=== PATIENT | male | born 1935 | race Caucasian/White ===

== ENCOUNTER → 2016-08-28 10:04 | Outpatient (CLI) | payer MEDICARE | END | disposition home or self-care (01) | LOC: D.RAD 10:04 | DX: M54.6 Pain in thoracic spine (principal) ==

== ENCOUNTER → 2016-08-31 08:33 | Outpatient (CLI) | payer MEDICARE | END | disposition home or self-care (01) | LOC: D.MRI 08:30 | DX: S22.009A Unspecified fracture of unspecified thoracic vertebra, initial encounter for closed fracture (principal) ==

== ENCOUNTER 2017-02-28 05:33 | Day surgery (SDC) | payer MEDICARE ==
[2017-02-27 11:01] LABS: BASOPHILS 0.1 % (0-2); EOSINOPHILS 2.1 % (0-7); HEMATOCRIT 44.7 % (42.0-54.0); HEMOGLOBIN 15.3 g/dL (13.5-17.5); IMMATURE GRANULOCYTES 0.3 % (0-5); LYMPHOCYTES 23.3 % (15-50); MCH 32.8 pg (26.0-34.0); MCHC 34.2 g/dL (31.0-37.0); MCV 95.9 fL (80.0-100.0); MEAN PLATELET VOLUME 9.7 fL (7.4-10.4); MONOCYTES 6.3 % (2-11); NEUTROPHILS 67.9 % (40-80); PLATELET COUNT 212 10x3/uL (130-400); RBC 4.66 10x6/uL (4.20-6.10); RDW 13.4 % (11.5-14.5); WBC 10.2 10x3/uL (4.8-10.8)
[2017-02-27 11:28] LABS: ANION GAP 7.5 mmol/L (8-16); CALCIUM 9.7 mg/dL (8.5-10.1); CARBON DIOXIDE 30.4 mmol/L (21.0-32.0); CREATININE - SERUM 1.2 mg/dL (0.6-1.3); POTASSIUM - SERUM 4.9 mmol/L (3.5-5.1)
[~2017-02-28] VITALS: Ht 182.9 cm; Wt 96.2 kg
[2017-02-28] MEDS ORDERED: COREG 3.1253.125 MG PO (06:41)
[2017-02-28] MEDS ORDERED: ZOCOR40 MG PO (06:41)
[2017-02-28] MEDS ORDERED: FUROSEMIDE40 MG PO (06:42)
[2017-02-28] MEDS ORDERED: LISINOPRIL10 MG PO (06:42)
[2017-02-28] MEDS ORDERED: ZYLOPRIM300 MG PO (06:43)
[2017-02-28 06:56] VITALS: BP 110/73; Ht 182.9 cm; Wt 96.2 kg
--- NOTE | 2017-02-28 10:16 | OP ---
PATIENT NAME: CK RODRIGUEZ MEDICAL RECORD: [id number] :34 LOCATION:D.OPS ADMISSION DATE: SURGEON: RAY VALENZUELA MD DATE OF OPERATION: 02/28/2017 SURGEON: Ray Valenzuela MD ANESTHESIA: MAC by Dr. Ray Allen. 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 PROCEDURE: Cystoscopy. FINDINGS: No urethral stricture. Nonobstructive prostatic lateral lobes. Tight bladder neck. Single ureteral orifices bilaterally. No bladder tumors. BLOOD LOSS: None. CLINICAL HISTORY: This is an 81-year-old male, who is complaining of a slow urinary stream. He has a history of a urethral stricture, which he had dilated in [place]. Thus, we are performing the procedure today to see if he has recurrence of urethral stricture. 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 He is allergic to PENICILLIN AND KIWI FRUIT. 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 DESCRIPTION OF PROCEDURE: The patient was given IV sedation. He was placed in the dorsal lithotomy position and prepped and draped. Lidocaine jelly was placed into the urethra. A 21-Cymro cystoscope with 30-degree lens was used for visualization. The penile urethra shows no evidence of a stricture. Prostatic urethra shows nonobstructive lateral lobes. However, the bladder neck was extremely tight. An anterior deflection of the scope was required in order to get through the bladder neck. Going into the bladder, there were single ureteral orifices on each side. The bladder was mildly trabeculated. No bladder tumors were seen. The bladder was then emptied through the scope sheath and the scope was removed. I will get the patient started on Flomax and see him back in 2-3 weeks' time to see if there is any change in his voiding symptoms. TRANSINT:[id number] Voice Confirmation ID: [id number] DOCUMENT ID: [id number] RAY VALENZUELA MD at 1016 CC: [id number] DICTATION DATE: 02/28/17929 CRACKER OFF: 02/28/17939 [facility] [address] [place] [address]
== END 2017-02-28 10:55 | disposition home or self-care (01) ==
LOC: D.OPS 05:33 → D.PAN 08:15 → D.OPS 08:15 → D.PAN 08:30 → D.OPS 10:55
PROVIDERS: Anesthesiology
DX: N32.0 Bladder-neck obstruction (principal); I11.0 Hypertensive heart disease with heart failure; I50.9 Heart failure, unspecified; K21.9 Gastro-esophageal reflux disease without esophagitis; Z01.812 Encounter for preprocedural laboratory examination

== ENCOUNTER 2017-06-20 10:33 | Outpatient (CLI) | payer MEDICARE ==
[~2017-06-20] VITALS: Ht 185.4 cm; Wt 95.5 kg
--- NOTE | ~2017-06-20 | HEMODYNAMI ---
PATIENT:CK RODRIGUEZ MEDICAL RECORD: [id number] : 34 LOCATION:D.CAT ADMISSION DATE: 06/20/17 Generatedon:06/20/201713:39 Patient name: CK RODRIGUEZ Patient #: [id number] SSN: : 1935 Date of study: 06/20/2017 Page: Of Hemodynamic Procedure Report Patient Data Patient Demographics Procedure consent was obtained First Name: CK Gender: Male Last Name: JENNIFER : 1935 [facility] Initial: E Age: 81 year(s) Patient #: [id number] Race: Unknown Additional ID: [id number] Contact details Address: [address] [place] [address] State: [place] City: [place] Zip code: [address] Past Medical History Allergies Allergen Reaction Date Comments Reported Other allergy 06/20/2017 PCN Admission Admission Data Admission Date: 06/20/2017 Admission Time: 10:33 Weight (lbs.): 212 Weight (kg.): 96.16 Procedure Procedure Types Cath Procedure Diagnostic Procedure Cardioversion External TARUN Procedure Description Procedure Date Procedure Date: 06/20/2017 Procedure Start Time: 13:02 Procedure Staff Name Function Isael Chacon MD Performing Physician Sahara Jimenez RT Monitor Vinayak Rain RN Nurse Carmelo Stallings Grubber Annita Mitchell CRNA Additional personnel Procedure Data Procedure Complications No complications Procedure Medications Medication Administration Route Dosage Oxygen NC 6 l/min 0.9% NaCl I.V. 100 ml/hr Refer to Anesthesia Notes for Sedation Medications Hemodynamics Rest Heart Rate: 81 (bpm) Snapshots Pre Cath Intra NCS Post Cath Vital Signs Time Heart Resp SPO2 etCO2 NIBP Rhythm Pain Sedation Rate (ipm) (%) (mmHg) (mmHg) Status Level (bpm) 13:14:07 80 15 86 0 110/71(85) NSR 0 (11) 10(A) , No pain 13:18:41 78 16 17.3 102/74(83) NSR 0 (11) 10(A) , No pain 13:23:16 92 16 100 0 107/76(94) NSR 0 (11) 10(A) , No pain 13:27:50 73 17 100 27.8 97/57(69) NSR 0 (11) 9(A) , No pain 13:32:31 63 21 100 30.1 89/44(60) NSR 0 (11) 9(A) , No pain 13:37:01 56 15 100 27.8 95/82(87) NSR 0 (11) 9(A) , No pain Medications Time Medication Route Dose Verified Delivered Reason Notes Effectiven ess by by 13:17:14 Oxygen NC 6 Isael Licea Per l/min St Rosalino Rain RN physician 13:17:33 0.9% NaCl I.V. 100 Isael Licea Per ml/hr St Rosalino Rain RN physician 13:17:39 Refer to Isael Licea Anesthesia St Rosalino Rain RN Notes for MD Sedation Medications Procedure Log Time Note 13:00:58 Vinayak Rain RN sent for patient. Start room use. 13:03:56 Time tracking: Regular hours 13:04:02 Plan of Care:Hemodynamics will remain stable., Cardiac rhythm will remain stable., Comfort level will be maintained., Respiratory function will remain adequate., Patient/ family verbilizes understanding of procedure., Procedure tolerated without complication., Recovers from procedure without complications.. 13:05:29 H&P Date Dictated: 06/06/2017 Within 30 days and on chart., H&P Addendum completed by physician on day of procedure. (MUST COMPLETE FOR ALL OUTPATIENTS). 13:05:48 Patient allergic to Other allergyPCN 13:06:06 Patient arrived from Pre/Post Procedure Room to CCL 1. Patient remains on bed/stretcher for procedure. 13:06:07 Warm blankets applied, and clint hugger turned on for patient comfort. 13:06:08 Correct patient and procedure confirmed by team. 13:06:10 Signed procedure consent form obtained from patient. 13:06:11 ECG and BP/O2 sat monitors applied to patient. 13:13:18 Vital chart was started 13:13:24 Rhythm: atrial fibrillation 13:13:40 Annita Mitchell CRNA present and monitoring patient for TIVA. 13:13:43 Carmelo Stallings Management Professionals present for TARUN. 13:13:52 --------ALL STOP TIME OUT------ 13:13:53 Final Timeout: patient, procedure, and site verified with staff and physician. All members of the team are in agreement. 13:13:58 Physical assessment completed. ASA score P 2 - A patient with mild systemic disease as per Isael Chacon MD. 13:14:02 Sedation plan: TIVA Medication:Propofol 13:14:05 Carmelo Stallings present and monitoring patient for TIVA. 13:14:24 Baseline sample Acquired. 13:14:56 Pre-procedure instructions explained to patient. 13:14:56 Pre-op teaching completed and patient verbalized understanding. 13:14:58 Family in patients room. 13:14:59 Patient NPO since Midnight. 13:15:04 Is patient on blood thinner?No 13:15:16 Patient diabetic? No. 13:15:19 Previous problem with sedation/anesthesia? No ? 13:15:20 Snore? Yes 13:15:24 Sleep apnea? No 13:15:26 Deviated septum? No 13:15:27 Opens mouth fully? Yes 13:15:31 Sticks out tongue? Yes 13:15:33 Airway obstruction? No ? 13:15:38 Dentures? Yes IN TIGHT 13:15:45 IV patent on arrival in right hand with 0.9% NaCl at KVO. 13:16:53 TARUN started. 13:17:14 Oxygen 6 l/min NC was administered by Vinayak Rain RN; Per physician; 13:17:22 Quick Combo opened to sterile field. 13:17:33 0.9% NaCl 100 ml/hr I.V. was administered by Vinayak Rain RN; Per physician; 13:17:39 Refer to Anesthesia Notes for Sedation Medications was administered by Vinayak Rain RN; ; 13:18:04 Patient Weight : 212 lbs 13:25:26 TARUN completed. 13:25:28 Quick combo pads placed on patients chest and back. 13:25:34 Defibrillator synced and charged to 275 Joules. 13:25:47 Shock delivered. 13:27:41 Patient cardioverted to sinus rhythm . 13:27:47 Procedure ended.(Physican Out) 13:28:06 Post-procedure physical assessment completed. ASA score P 2 - A patient with mild systemic disease as per Isael Chacon MD. 13:28:09 Post procedure rhythm: sinus bradycardia 13:28:12 Post procedure instruction explained to patient.Patient verbalizes understanding. 13:28:12 Patient needs reinforcement of post procedure teaching. 13:30:48 Procedure and supply charges have been captured, reviewed, submitted and are correct. 13:30:51 Procedure Complication : No complications 13:38:26 Vital chart was stopped 13:38:27 See physician's report for complete and final results. 13:38:28 Report given to Pre/Post Procedure Room. 13:38:32 Patient transfered to Pre/Post Procedure Room with Bed. 13:38:36 End room use (Document Last) Device Usage Item Manufacture Quantity Catalog Hospital Part Current Minimal Lot# / Name Number Charge Number Stock Stock Raj in# Code CoNarrative 1 [id number] Combo Signature Audit [place] Stage Time Signature Unsigned Intra-Procedure 06/20/2017 Sahara Jimenez 1:39:03 PM RT(R) Signatures Monitor : Sahara Jimenez Signature : RT Date : Time : [address] [address]
--- NOTE | ~2017-06-20 | TEE ---
PATIENT:CK RODRIGUEZ MEDICAL RECORD: [id number] LOCATION:D.[facility] AGE OF PATIENT: 81 ADMISSION DATE: 06/20/17 SEX: M REFERRING PHYSICIAN: INTERPRETING PHYSICIAN: MIRI HILL MD TRANSESOPHAGEAL ECHOCARDIOGRAM TARUN CHARGE Y INDICATIONS: AFIB ASSESS FOR CLOTS PREMEDICATIONS: PATIENT'S RESPONSE PROCEDURE DOPPLER MEASUREMENTS: LVIT LA PA RA LVOT RVOT Asc. Ao AV Gradient Peak AV Mean AV Area MV Gradient Peak MV Mean MV Area INTERPRETATION: Doppler: 2-D: NO CLOTS, 4 CHAMBER DIALATED. COLOR FLOW DOPPLER NORMAL SALINE STUDY: MISCELLANOUS: DIAGNOSIS: PLAN: Supervisor/Port Director:3 Dr. Macias Planishing Hammer Operator: Remington NASH COMMENTS: DATE OF SERVICE: 06/20/2017 PROCEDURE: Transesophageal echo evaluation for left atrial clot due to atrial fibrillation. FINDINGS: 1. Left ventricular chamber size is within normal limits. Left ventricular systolic function is normal. Overall ejection fraction estimated at 60%. 2. Left atrium, right atrium, and right ventricle chamber sizes are upper TRANSESOPHAGEAL ECHOCARDIOGRAM REPORT [id number] CK RODRIGUEZ limits of normal. 3. Valvular structures have normal structure and motion. 4. Doppler interrogation reveals no significant valvular insufficiency or stenosis. 5. No evidence of pericardial effusion or left ventricular thrombus. 6. No left atrial or left ventricular thrombus burden noted. TRANSINT:[id number] Voice Confirmation ID: [id number] DOCUMENT ID: [id number] at 1202 CC: [id number] DICTATION DATE: 06/21/17 1206 YARN DYER: 06/21/17 1227 DEP CLI 06/20/17 [place] [address]
--- NOTE | ~2017-06-20 | OP ---
PATIENT NAME: MICHELE ROSENBERG MEDICAL RECORD: [id number] :34 LOCATION:D.CAT ADMISSION DATE: SURGEON: DEVAN RUEDA MD DATE OF OPERATION: 06/20/2017 TRANSESOPHAGEAL NOTE AND CARDIOVERSION NOTE PROCEDURE: After general anesthesia via TIVA anesthesia, transesophageal Omniplane probe was placed down the distal esophagus and proximal stomach without difficulty. FINDINGS: Grossly LV internal dimensions are normal. LV appears to be little hypokinetic, reduced EF. Estimated EF 40%. Aortic valve is sclerotic; however, adequate valve excursion. No significant AI. Left atrium does appear to be enlarged by 2D. Left atrial appendage is well visualized without evidence of thrombus. Right-sided chambers appeared to be at least upper limits of normal. Mild plus to moderate TR. No evidence of ASD or VSD. Next, a single synchronized shock at 275 joules is successful in restoring atrial fibrillation to normal sinus rhythm without PACs or PVCs. IMPRESSION: Successful cardioversion and transesophageal on Michele Rosenberg. We will reiterate the importance of compliance, although long-term, not sure that he will continue to be compliant. TRANSINT:[id number] Voice Confirmation ID: [id number] DOCUMENT ID: [id number] DEVAN RUEDA MD at 1231 CC: [id number] DICTATION DATE: 06/20/17 1336 SUPERVISORY LIFEGUARD: 06/20/17 1623 DEP CLI 06/20/17 [place] [id number] [place] [id number]
[~2017-06-20 10:33] MED LIST: COREG 3.1253.125 MG PO; FUROSEMIDE40 MG PO; LISINOPRIL10 MG PO; ZOCOR40 MG PO; ZYLOPRIM300 MG PO
[2017-06-20] MEDS ORDERED: FLOMAX0.4 MG PO (11:08)
[2017-06-20 11:28] VITALS: BP 127/84; Ht 185.4 cm; Wt 95.5 kg
[2017-06-20 11:39] LABS: BASOPHILS 0.1 % (0-2); EOSINOPHILS 2.4 % (0-7); HEMATOCRIT 45.1 % (42.0-54.0); HEMOGLOBIN 15.4 g/dL (13.5-17.5); IMMATURE GRANULOCYTES 0.3 % (0-5); LYMPHOCYTES 21.5 % (15-50); MCH 32.3 pg (26.0-34.0); MCHC 34.1 g/dL (31.0-37.0); MCV 94.5 fL (80.0-100.0); MEAN PLATELET VOLUME 9.8 fL (7.4-10.4); MONOCYTES 6.6 % (2-11); NEUTROPHILS 69.1 % (40-80); PLATELET COUNT 176 10x3/uL (130-400); RBC 4.77 10x6/uL (4.20-6.10); RDW 13.4 % (11.5-14.5)
[2017-06-20 11:49] LABS: ANION GAP 14.5 mmol/L (8-16); CALCIUM 9.9 mg/dL (8.5-10.1); CARBON DIOXIDE 26.9 mmol/L (21.0-32.0); CREATININE - SERUM 1.3 mg/dL (0.6-1.3); POTASSIUM - SERUM 4.4 mmol/L (3.5-5.1)
[2017-06-20 11:52] LABS: INR 1.02 (0.85-1.17)
== END 2017-06-20 14:58 | disposition home or self-care (01) ==
LOC: D.CATH 10:33
PROVIDERS: Internal Medicine Cardiovascular Disease
DX: I70.0 Atherosclerosis of aorta (principal); I07.1 Rheumatic tricuspid insufficiency; I48.91 Unspecified atrial fibrillation; Z01.812 Encounter for preprocedural laboratory examination

== ENCOUNTER 2017-07-09 15:30 | Observation (INO) | payer MEDICARE ==
[~2017-07-09] VITALS: Ht 185.4 cm; Wt 95.3 kg
--- NOTE | ~2017-07-09 | DS ---
PATIENT:CK ROSENBERG :33 MEDICAL RECORD: [id number] DISCHARGE SUMMARY ADMISSION DATE: 07/09/17 DISCHARGE DATE: 07/11/17 DATE OF DISCHARGE: 07/11/2017. DIAGNOSES: 1. Bradycardia. 2. Paroxysmal atrial fibrillation. 3. Sick sinus syndrome. HOSPITAL COURSE: Mr. Rosenberg presented with atrial fibrillation, last week underwent transesophageal echo DC cardioversion, came back this week. He was quite bradycardic. He is on sotalol 80 mg b.i.d. as well as carvedilol and we held both, his heart rate came up to the 70s. He remained in sinus rhythm. We will discontinue the carvedilol permanently, have the sotalol to 40 mg b.i.d. We will follow up next week. TRANSINT:[id number] Voice Confirmation ID: [id number] DOCUMENT ID: [id number] MIRI HILL MD at 1056 CC: [id number] DICTATION DATE: 07/11/17 1218 COMMUNICATIONS ENGINEERING TECHNICIAN: 07/11/17 1228 DIS IN 07/11/17 [place] [id number] [place] [id number]
[~2017-07-09 15:30] MED LIST changes: +FLOMAX0.4 MG PO
[2017-07-09 16:08] LABS: BASOPHILS 0.1 % (0-2); EOSINOPHILS 3.1 % (0-7); HEMATOCRIT 39.3 % (42.0-54.0); HEMOGLOBIN 13.5 g/dL (13.5-17.5); IMMATURE GRANULOCYTES 0.1 % (0-5); LYMPHOCYTES 26.2 % (15-50); MCH 32.5 pg (26.0-34.0); MCHC 34.4 g/dL (31.0-37.0); MCV 94.7 fL (80.0-100.0); MEAN PLATELET VOLUME 9.3 fL (7.4-10.4); MONOCYTES 7.7 % (2-11); NEUTROPHILS 62.8 % (40-80); PLATELET COUNT 158 10x3/uL (130-400); RBC 4.15 10x6/uL (4.20-6.10); RDW 13.4 % (11.5-14.5)
[2017-07-09 16:32] LABS: ALBUMIN 3.6 g/dL (3.4-5.0); ALKALINE PHOSPHATASE 63 U/L (46-116); ALT (SGPT) 15 U/L (10-68); BILIRUBIN - TOTAL 0.62 mg/dL (0.2-1.3); CALC OSMOLALITY 284 mosm/kg (275-300); CALCIUM 8.7 mg/dL (8.5-10.1); CARBON DIOXIDE 26.3 mmol/L (21.0-32.0); CHLORIDE - SERUM 105 mmol/L (98-107); CREATININE - SERUM 1.3 mg/dL (0.6-1.3); GLUCOSE 125 mg/dL (74-106); POTASSIUM - SERUM 4.4 mmol/L (3.5-5.1); PROTEIN - SERUM 6.5 g/dL (6.4-8.2); SODIUM 140 mmol/L (136-145); UREA NITROGEN 26 mg/dL (7-18); eGFR NON AFRICAN AMERICAN 56 mL/min (90-120)
[2017-07-09 16:42] LABS: CKMB 1.5 U/L (0.0-3.6); CREATINE KINASE 142 UL (21-232)
[2017-07-09 16:58] LABS: TROPONIN-I < 0.017 ng/mL (0.000-0.060)
[2017-07-09 17:16] LABS: APPEARANCE CLEAR (CLEAR); BILIRUBIN NEGATIVE (NEGATIVE); COLOR YELLOW (YELLOW); GLUCOSE NEGATIVE (NEGATIVE); KETONE NEGATIVE (NEGATIVE); NITRITE NEGATIVE (NEGATIVE); PROTEIN NEGATIVE (NEGATIVE); UROBILINOGEN NORMAL (NORMAL)
[2017-07-09 20:26] LABS: CKMB 1.3 U/L (0.0-3.6); CREATINE KINASE 140 UL (21-232); TROPONIN-I < 0.017 ng/mL (0.000-0.060)
[2017-07-10 01:26] VITALS: BP 96/62
[2017-07-10 02:19] LABS: CKMB 1.6 U/L (0.0-3.6); CREATINE KINASE 185 UL (21-232); TROPONIN-I < 0.017 ng/mL (0.000-0.060)
[2017-07-10 06:34] VITALS: BP 106/70
[2017-07-10 06:36] VITALS: BP 96/62; BMI 27.6
[2017-07-10 09:24] LABS: BASOPHILS 0.1 % (0-2); EOSINOPHILS 2.8 % (0-7); HEMATOCRIT 41.1 % (42.0-54.0); IMMATURE GRANULOCYTES 0.3 % (0-5); LYMPHOCYTES 22.6 % (15-50); MCH 32.3 pg (26.0-34.0); MCHC 34.1 g/dL (31.0-37.0); MCV 94.7 fL (80.0-100.0); MEAN PLATELET VOLUME 9.9 fL (7.4-10.4); MONOCYTES 7.2 % (2-11); PLATELET COUNT 163 10x3/uL (130-400); RBC 4.34 10x6/uL (4.20-6.10); RDW 13.3 % (11.5-14.5); WBC 7.8 10x3/uL (4.8-10.8)
[2017-07-10 09:57] LABS: CALC OSMOLALITY 284 mosm/kg (275-300); CARBON DIOXIDE 25.5 mmol/L (21.0-32.0); CHLORIDE - SERUM 106 mmol/L (98-107); CKMB 1.5 U/L (0.0-3.6); CREATINE KINASE 118 UL (21-232); CREATININE - SERUM 1.2 mg/dL (0.6-1.3); GLUCOSE 132 mg/dL (74-106); POTASSIUM - SERUM 4.3 mmol/L (3.5-5.1); SODIUM 140 mmol/L (136-145); TROPONIN-I < 0.017 ng/mL (0.000-0.060); UREA NITROGEN 24 mg/dL (7-18); eGFR NON AFRICAN AMERICAN 61 mL/min (90-120)
[2017-07-10 13:24] VITALS: Ht 185.4 cm; Wt 95.3 kg
[2017-07-10 20:00] VITALS: BP 112/53
[2017-07-11 06:42] VITALS: BP 130/68
[2017-07-11 10:25] VITALS: BP 168/60
[2017-07-11] MEDS ORDERED: BETAPACE 80 MG80 MG PO (12:30)
[2017-07-11 13:01] VITALS: BP 124/88
== END 2017-07-11 17:35 | disposition home or self-care (01) ==
LOC: D.ER 15:30 → D.EDHOLD 19:41 → D.M2 19:41 → D.EDHOLD 19:41 → OBSVTIME 19:42 → D.M2 19:50
PROVIDERS: Family Medicine
DX: I49.5 Sick sinus syndrome (principal); I95.9 Hypotension, unspecified; I48.0 Paroxysmal atrial fibrillation

== ENCOUNTER 2017-08-13 11:14 | Outpatient (CLI) | payer MEDICARE ==
[~2017-08-13] VITALS: Ht 185.4 cm; Wt 96.8 kg
--- NOTE | ~2017-08-13 | HEMODYNAMI ---
PATIENT:CK RODRIGUEZ MEDICAL RECORD: [id number] : 34 LOCATION:DSheaCAT ADMISSION DATE: 08/13/17 Generatedon:08/13/201715:42 Patient name: CK RODIRGUEZ Patient #: [id number] SSN: : 1935 Date of study: 08/13/2017 Page: Of Hemodynamic Procedure Report Patient Data Patient Demographics Procedure consent was obtained First Name: CK Gender: Male Last Name: JENNIFER : 1935 [facility] Initial: E Age: 81 year(s) Patient #: [id number] Race: Unknown Additional ID: [id number] Contact details Address: [address] [place] [address] State: [place] City: [place] Zip code: [address] Past Medical History Allergies Allergen Reaction Date Comments Reported Other allergy 06/20/2017 PCN Other allergy 08/13/2017 PCN, KIWI Admission Admission Data Admission Date: 08/13/2017 Admission Time: 11:14 Lab Results Lab Result Date: 08/13/2017 Lab Result Time: 0:00 Biochemistry Name Units Result Min Max BUN mg/dl 23 --(----)-* 7 18 Creatinine mg/dl 1.2 --(---*)-- 0.6 1.3 CBC Name Units Result Min Max Hemoglobin g/dl 13.6 --(*---)-- 13.5 17.5 Procedure Procedure Types Cath Procedure Diagnostic Procedure PPM/ICD PPM Dual Implant Procedure Description Procedure Date Procedure Date: 08/13/2017 Procedure Start Time: 15:09 Procedure End Time: 15:36 Procedure Staff Name Function Isael Chacon MD Performing Physician Laurent Navarro MD Assisting physician Sahara Jimenez RT Monitor Angel Lima RT Scrub Vinayak Rain RN University Controller Adelfo Lange RN Nurse Procedure Data Cath Procedure Fluoroscopy Diagnostic fluoroscopy Total fluoroscopy Time: 1.3 time: 1.3 min min Diagnostic fluoroscopy Total fluoroscopy dose: 36 dose: 36 mGy mGy Estimated blood loss: 10 ml Procedure Complications No complications Procedure Medications Medication Administration Route Dosage Oxygen NC 2 l/min Lidocaine 1% with added to field 20 ml Epi Bupivacaine 0.5% 10 ml Vancomycin I.V.P.B 1 g Vancomycin Topical 1 g Irrigation Versed I.V. 1 mg Fentanyl I.V. 50 mcg Versed I.V. 1 mg Fentanyl I.V. 50 mcg Hemodynamics Rest HGB: 13.6 (g/dl) Heart Rate: 62 (bpm) Snapshots Pre Cath Intra NCS Post Cath Vital Signs Time Heart Resp SPO2 etCO2 NIBP (mmHg) Rhythm Pain Sedation Rate (ipm) (%) (mmHg) Status Level (bpm) 14:45:20 68 15 97 24 153/90(135) SB 0 (11) 10(A) , No pain 14:50:00 67 12 98 24.7 152/69(99) SB 0 (11) 10(A) , No pain 14:54:25 61 16 97 30.8 134/98(122) SB 0 (11) 10(A) , No pain 14:58:49 60 15 98 31.5 137/91(128) SB 0 (11) 10(A) , No pain 15:04:10 62 14 100 32.3 133/73(102) SB 0 (11) 10(A) , No pain 15:08:43 60 14 99 27 121/66(107) SB 0 (11) 9(A) , No pain 15:13:03 89 16 97 2.9 129/79(121) SB 0 (11) 9(A) , No pain 15:17:23 64 19 95 9.7 131/92(116) SB 0 (11) 9(A) , No pain 15:21:47 68 18 99 30.7 141/81(113) SB 0 (11) 9(A) , No pain 15:26:15 29 19 99 22.5 129/74(110) SB 0 (11) 9(A) , No pain 15:30:44 31 50 100 0 126/66(111) SB 0 (11) 10(A) , No pain 15:35:02 91 15 100 31.5 112/80(97) SB 0 (11) 10(A) , No pain Medications Time Medication Route Dose Verified Delivered Reason Notes Effectiv eness by by 14:58:03 Oxygen NC 2 Isael Ianie used for l/min St Rosalino Lange RN procedure 14:58:11 Lidocaine added 20 ml Isael Mancilla for local 1% with Epi to St Rosalino Navarro MD anesthetic field RDZ 14:58:29 Bupivacaine on 10 ml Isael Mancilla for local 0.5% field St Rosalino Navarro MD anesthetic 14:58:50 Vancomycin I.V.P.B 1 g Isael Kirkland used for Ines St Jerry procedure MD RDZ 14:59:00 Vancomycin Topical 1 g Isael Mancilla used for Irrigation St Rosalino Navarro MD procedure 15:05:37 Versed I.V. 1 mg Isael Sosaie for St Rosalino Lange RN sedation 15:05:44 Fentanyl I.V. 50 Isael [address] for mcg [facility] Rosalino Lange RN sedation 15:12:08 Versed I.V. 1 mg Isael Buffie for St Rosalino Lange RN sedation 15:12:12 Fentanyl I.V. 50 Is[address] for mcg [address] Rosalino Lange RN sedation Procedure Log Time Note 14:12:31 Time tracking: Regular hours (M-F 7:00 - 5:00) 14:12:35 Plan of Care:Hemodynamics will remain stable., Cardiac rhythm will remain stable., Comfort level will be maintained., Respiratory function will remain adequate., Patient/ family verbilizes understanding of procedure., Procedure tolerated without complication., Recovers from procedure without complications.. 14:12:40 Sahara Jimenez RT(R) sent for patient. Start room use. 14:20:36 H&P Date Dictated: 08/01/2017 Within 30 days and on chart.. 14:21:18 Signed procedure consent form obtained from patient. 14:22:59 Lab Result : Creatinine 1.2 mg/dl 14:22:59 Lab Result : BUN 23 mg/dl 14:22:59 Lab Result : Hemoglobin 13.6 g/dl 14:27:08 Patient allergic to Other allergyPCN, KIWI 14:34:42 Patient received from Pre/Post Procedure Room to CCL 3 Alert and oriented. Tansferred to table in Supine position. 14:34:43 Correct patient and procedure confirmed by team. 14:34:44 ECG and BP/O2 sat monitors applied to patient. 14:43:54 Vital chart was started 14:43:56 Baseline sample Acquired. 14:44:07 Rhythm: atrial fibrillation 14:44:08 Full Disclosure recording started 14:44:11 Pre-procedure instructions explained to patient. 14:44:11 Pre-op teaching completed and patient verbalized understanding. 14:44:13 Family in patients room. 14:44:18 Patient NPO since Midnight. 14:44:20 Is the patient allergic to Iodine/contrast media? No. 14:44:22 Is patient on blood thinner?No 14:44:24 Patient diabetic? No. 14:44:33 Previous problem with sedation/anesthesia? No ? 14:44:34 Snore? Yes 14:44:35 Sleep apnea? No 14:44:36 Deviated septum? No 14:44:37 Opens mouth fully? Yes 14:44:37 Sticks out tongue? Yes 14:44:40 Airway obstruction? No ? 14:44:44 Dentures? Yes IN TIGHT 14:44:58 IV patent on arrival in left hand with 0.9% NaCl at O. 14:45:04 Lab results completed and on chart. 14:45:16 Left chest area was prepped with chlora-prep and draped in sterile fashion 14:45:18 Alarms reviewed by R. N. 14:45:18 Sharps counted by scrub and verified by R.N. 14:53:51 Medtronic Advisa MRI PPM Dual Generator [id number] opened to sterile field. 14:53:58 Medtronic 4074-52 PPM Lead opened to sterile field. 14:54:07 Medtronic 4574-45 PPM Lead opened to sterile field. 14:58:03 Oxygen 2 l/min NC was administered by Adelfo Lange RN; used for procedure; 14:58:11 Lidocaine 1% with Epi 20 ml added to field was administered by Laurent Navarro MD; for local anesthetic; 14:58:29 Bupivacaine 0.5% 10 ml on field was administered by Laurent Navarro MD; for local anesthetic; 14:58:50 Vancomycin 1 g I.V.P.B was administered by Isael Chacon MD; used for procedure; 14:59:00 Vancomycin Irrigation 1 g Topical was administered by Laurent Navarro MD; used for procedure; 15:00:39 --------ALL STOP TIME OUT------ 15:00:40 Final Timeout: patient, procedure, and site verified with staff and physician. All members of the team are in agreement. 15:00:45 Left chest site verified by team. 15:00:50 Physical assessment completed. ASA score P 2 - A patient with mild systemic disease as per Isael Chacon MD. 15:00:54 Sedation plan: IV Moderate Sedation Medication:Versed, Fentanyl 15:03:28 Pre sharps counted by scrub and verified by RN: Sutures: 7; Sponges: 5; Stick needles: 2; Skin needles: 2; Blade: 1; Cautery: 1 15:03:31 Grounding pad site Left thigh. 15:03:32 Grounding pad site free from injury. 15:04:50 [employer] small business representative DAR HELM present for procedure. 15:05:37 Versed 1 mg I.V. was administered by Adelfo Lange RN; for sedation; 15:05:44 Fentanyl 50 mcg I.V. was administered by Adelfo Lange RN; for sedation; 15:09:21 Procedure started. 15:09:45 Lidocaine 1% w/epi and Bupivacaine 0.5% was administered to left subclavicular area by Laurent Navarro MD . 15:11:05 Incision made to left subclavicular area. 15:12:08 Versed 1 mg I.V. was administered by Adelfo Lange RN; for sedation; 15:12:12 Fentanyl 50 mcg I.V. was administered by Adelfo Lange RN; for sedation; 15:14:13 Generator pocket made/opened. 15:15:15 Left subclavian vein accessed with 7Fr Peel Away Sheath. 15:16:19 Ventricular lead inserted and advanced. 15:17:10 Ventricular lead positioned. 15:17:16 Ventricular lead tested. 15:18:06 Peel-a-way sheath was split and removed. 15:18:26 Left subclavian vein accessed with 7Fr Peel Away Sheath. 15:20:54 Atrial lead inserted and advanced. 15:20:57 Atrial lead positioned. 15:21:02 Atrial lead tested. 15:21:41 Peel-a-way sheath was split and removed. 15:21:54 PPM Dual was attached to lead(s) and inserted into pocket. 15:22:54 PPM Dual was inserted subcutaneously to left chest. 15:22:58 Device pocket was irrigated with Ancef. 15:23:03 Atrial lead attachment was completed with 2-0 ticron. 15:23:08 Ventricular lead attachment was completed with 2-0 ticron. 15:23:45 Subcutaneous closure was completed with 3-0 vicryl. 15:23:52 Skin closure was completed with 5-0 monocryl. 15:25:37 Parameters-- Generator: Mode: AAIR/DDDR. Lower Rate: 60bpm. Upper Rate: 120bpm. 15:27:10 Parameters--Ventricular P/R Wave: 7.1mV. Current: .3mA; Threshold: .5V; Impedence: 1628OHMS. 15:27:33 Parameters--Atrial P/R Wave: 1.7mV. Current: .7mA; Threshold: .5V; Impedence: 789OHMS. 15:30:12 Post sharps counted by scrub and verified by RN: Sutures: 7; Sponges: 5; Stick needles: 2; Skin needles: 2; Blade: 1; Cautery: 1 15:30:22 Lt Chest incision was dressed with Mepilex dressing. 15:34:52 2-0 Ticron Multipack ([id number]) opened to sterile field. 15:34:53 3-0 Vicryl Single Pack [id number] opened to sterile field. 15:34:53 5-0 Monocryl PS3 [id number] opened to sterile field. 15:35:21 Mepilex Dressing ([id number]) opened to sterile field. 15:35:27 Procedure ended.(Physican Out) 15:35:44 Fluoroscopy time 01.30 minutes. 15:35:49 Flurop Dose total: 36 15:35:49 Fluoroscopy dose: 36 mGy 15:35:51 Sharps counted by scrub and verified by R.N. 15:36:09 Post-procedure physical assessment completed. ASA score P 2 - A patient with mild systemic disease as per Isael Chacon MD. 15:36:12 Post procedure rhythm: paced 15:36:15 Estimated blood loss: 10 ml 15:36:23 Post procedure instruction explained to patient.Patient verbalizes understanding. 15:36:24 Patient needs reinforcement of post procedure teaching. 15:36:46 Procedure and supply charges have been captured, reviewed, submitted and are correct. 15:36:49 Procedure Complication : No complications 15:36:51 Vital chart was stopped 15:36:51 See physician's report for complete and final results. 15:36:53 Report given to PCU. 15:36:55 Patient transfered to PCU with Bed. 15:36:57 Procedure ended. 15:36:57 Full Disclosure recording stopped 15:37:00 End room use (Document Last) Device Usage Item Name Manufacture Quantity Catalog Hospital Part Current Minimal Lot# / Number Charge Number Stock Stock Serial# Code Medtronic Medtronic 1 [id number] 5 EXP Advisa MRI 07.10.2018 PPM Dual [id number] Generator [id number] Medtronic Medtronic 1 4074-52 063987 247970 5 EXP 4074-52 PPM 12.24.2018 Lead [id number] Medtronic Medtronic 1 4574-45 961934 810424 5 EXP02.19.2019 4574-45 PPM [id number] Lead 2-0 Ticron Ethicon 1 [id number] 274458 86877 190565 5 Multipack ([id number]) 3-0 Vicryl Ethicon 1 [id number] 195627 014115 991782 5 Single Pack [id number] 5-0 Monocryl Ethicon 1 [id number] 306256 352497 5 PS3 [id number] Mepilex Cardinal 1 728249 217284 130156 723610 5 [facility] (672850) Signature Audit [place] Stage Time Signature Unsigned Intra-Procedure 08/13/2017 Sahara Jimenez 3:42:43 PM RT(R) Signatures Monitor : Sahara Jimenez Signature : RT Date : Time : [place] [address] [place] [address]
--- NOTE | ~2017-08-13 | OP ---
PATIENT NAME: MICHELE ROSENBERG MEDICAL RECORD: [id number] :34 LOCATION:D.CAT ADMISSION DATE: SURGEON: DEVAN RUEDA MD DATE OF OPERATION: 08/13/2017 PROCEDURE: Lead portion of permanent pacemaker placement. INDICATION: Sick sinus syndrome, PAF with tiesha escape rhythm. SURGEON: Laurent Navarro MD DESCRIPTION OF PROCEDURE: After left subclavian was cannulated via modified Seldinger technique by Dr. Navarro, first under fluoroscopic guidance, the RV lead was placed in the RV apex without difficulty. After adequate R waves and thresholds were obtained, again under fluoroscopic guidance, I placed the right atrial lead in the right atrial appendage without difficulty. After adequate thresholds and P waves were obtained, the leads were attached to appropriate poles of the generator and the pocket was closed via Dr. Navarro. IMPRESSION: Successful lead portion of permanent pacemaker placement on Michele Rosenberg. ESTIMATED BLOOD LOSS: Minimal. COMPLICATIONS: None. DISPOSITION: To the floor stable. TRANSINT:[id number] Voice Confirmation ID: [id number] DOCUMENT ID: [id number] DEVAN RUEDA MD at 0804 CC: [id number] DICTATION DATE: 08/13/17 1527 AIRCRAFT METALSMITH: 08/13/17 1619 DEP CLI 08/14/[address] [address]
[~2017-08-13 11:14] MED LIST changes: +BETAPACE 80 MG80 MG PO
[2017-08-13] MEDS ORDERED: COREG 3.1253.125 MG PO (11:57)
[2017-08-13 12:04] VITALS: BP 103/62; Ht 185.4 cm; Wt 96.8 kg
[2017-08-13 12:13] LABS: HEMATOCRIT 39.6 % (42.0-54.0); HEMOGLOBIN 13.6 g/dL (13.5-17.5); MCH 32.7 pg (26.0-34.0); MCHC 34.3 g/dL (31.0-37.0); MCV 95.2 fL (80.0-100.0); MEAN PLATELET VOLUME 10.1 fL (7.4-10.4); RBC 4.16 10x6/uL (4.20-6.10); RDW 13.5 % (11.5-14.5); WBC 8.1 10x3/uL (4.8-10.8)
[2017-08-13 12:27] LABS: INR 1.08 (0.85-1.17); PROTIME 13.6 SECONDS (11.6-15.0)
[2017-08-13 12:28] LABS: APTT 28.7 SECONDS (22.8-39.4)
[2017-08-13 12:36] LABS: ANION GAP 14.7 mmol/L (8-16); CALCIUM 9.3 mg/dL (8.5-10.1); CARBON DIOXIDE 24.6 mmol/L (21.0-32.0); CREATININE - SERUM 1.2 mg/dL (0.6-1.3); POTASSIUM - SERUM 4.3 mmol/L (3.5-5.1)
[2017-08-13 20:00] VITALS: BP 109/57
[2017-08-14] VITALS: BP 113/68
[2017-08-14 04:00] VITALS: BP 100/64
[2017-08-14 09:10] VITALS: BP 114/60
== END 2017-08-14 11:30 | disposition home or self-care (01) ==
LOC: D.CATH 11:14 → D.M2 16:10 → D.CATH 08-14 11:30
PROVIDERS: Internal Medicine Interventional Cardiology
DX: I49.5 Sick sinus syndrome (principal); I48.0 Paroxysmal atrial fibrillation; Z01.812 Encounter for preprocedural laboratory examination

== ENCOUNTER 2018-08-12 05:30 | Day surgery (SDC) | payer MEDICARE ==
[2018-08-11 12:11] LABS: BASOPHILS 0.1 % (0-2); EOSINOPHILS 2.1 % (0-7); HEMATOCRIT 44.8 % (42.0-54.0); HEMOGLOBIN 15.1 g/dL (13.5-17.5); IMMATURE GRANULOCYTES 0.2 % (0-5); LYMPHOCYTES 25.8 % (15-50); MCHC 33.7 g/dL (31.0-37.0); MCV 94.9 fL (80.0-100.0); MEAN PLATELET VOLUME 10.5 fL (7.4-10.4); MONOCYTES 8.3 % (2-11); NEUTROPHILS 63.5 % (40-80); PLATELET COUNT 137 10x3/uL (130-400); RBC 4.72 10x6/uL (4.20-6.10); RDW 13.5 % (11.5-14.5); WBC 9.8 10x3/uL (4.8-10.8)
[2018-08-11 12:12] LABS: ANION GAP 16.7 mmol/L (8-16); CALCIUM 9.3 mg/dL (8.5-10.1); CARBON DIOXIDE 24.2 mmol/L (21.0-32.0); CREATININE - SERUM 1.2 mg/dL (0.6-1.3); POTASSIUM - SERUM 4.9 mmol/L (3.5-5.1)
[~2018-08-12] VITALS: Ht 182.9 cm; Wt 99.3 kg
[~2018-08-12 05:30] MED LIST changes: +ZOCOR20 MG PO
[2018-08-12 06:13] VITALS: BP 110/73; Ht 182.9 cm; Wt 99.3 kg
--- NOTE | 2018-08-12 09:09 | NUR ---
3096 UP TO BATHROOM WITH ASSISTANCE. Melody ROSARIO R.N.
--- NOTE | 2018-08-12 09:49 | OP ---
PATIENT NAME: CK RODRIGUEZ MEDICAL RECORD: [id number] :34 LOCATION:D.OPS ADMISSION DATE: SURGEON: RACHEL VALENZUELA MD DATE OF OPERATION: 08/12/2018 SURGEON: Rachel Valenzuela MD ANESTHESIA: TIVA by XIOMARA Kunz CRNA DIAGNOSIS: Obstructive benign prostatic hypertrophy. PROCEDURE: UroLift times 4, the bladder neck in a box configuration. FINDINGS: Obstructive bladder neck. Single ureteral orifices bilaterally. No bladder tumors. ESTIMATED BLOOD LOSS: Minimal. CLINICAL HISTORY: This is an 82-year-old male, who has obstructive BPH. Cystoscopy shows that the obstruction is primarily at the bladder neck and the lateral lobes are not obstructive. He has been on Flomax since 2017. He does not experience any lightheadedness. He does have some issues with memory loss. Due to the recent reports that Flomax may predispose to dementia, he would like to get off the Flomax. His IPSS score is 12 and his quality of life score is 3 while on Flomax. On JOHN, the prostate is 30 grams in size. THE PATIENT IS ALLERGIC TO PENICILLIN. He was given Levaquin IV economic research analyst to the OR. DESCRIPTION OF PROCEDURE: The patient was given IV sedation. He was then placed into dorsal lithotomy position and prepped and draped. The UroLift scope was introduced. The cystoscopic findings are as outlined above. We started 1.5 cm distal to the bladder neck. At the very anterior corner of the lateral lobe device was placed on each side. Once this device was implanted, then we again started at the bladder neck and placed another 2 devices in the lateral lobe 1.5 cm distal to the bladder neck as a more inferior position. This resulted in a rectangular box opening of the bladder neck. The bladder neck is open now. The procedure was then terminated. The bladder was emptied through the cystoscope sheath. The patient will be seen in followup in 1 months' time. TRANSINT:[id number] Voice Confirmation ID: [id number] DOCUMENT ID: [id number] RACHEL VALENZUELA MD at 0949 CC: [id number] DICTATION DATE: 08/12/18818 PEDIATRICS TEACHER: 08/12/18 0942 REG [facility] [address] [place] [address]
--- NOTE | 2018-08-12 09:50 | NUR ---
0950 IV RATE INCREASED INFUSING WITOUT DIFFICULTY. Melody ROSARIO R.N.
--- NOTE | 2018-08-12 13:59 | NUR ---
1020 USING LBADDER SCANNER SHOWS 273ML URINE IN BLADDER. Melody ROSARIO R.N.
--- NOTE | 2018-08-12 14:00 | NUR ---
1035 USING ASEPTIC TECHNIQUE #16 UZBEK ANG CATHETER INSERTED INTO URINARY MEATUS & ADVANCEDWITH RETURN OF BURGANDY FLUID. BALLOON INFLATED WITH CATHETER IN PLACE. CONTINUES TO DRAIN DARK BURGANDY FLUID. Melody Lam.N. 1050 IV DC'ED WITH CATH INTACT WITH 100ML LTC. PT DRESSING WITH ASSISTANCE. Melody Lam.N. 1110 MRS[address] RODRIGUEZ GIVEN DEMOSTRATION OF HOW TO EMPTY ANG COLLECTION BAG, BAG EMPTIED OF 225ML OF DARK RED FLUID. Melody Lam.NShea 1125 DRESSED, AWAKE, & ALERT. GIVEN DISCHARGE INFORMATION INCLUDING: MED REC., [facility] D/C INSTRUCTIONS, RTC APPT., UROLIFT D/C INSTRUCTIONS, UROLIFT PAMPHLET & UROLIFT ID CARD WELL HOW TO CARE FOR ANG (MALE) PT & VOICE UNDERSTANDING. TO PRIVATE CAR PER WHEELCHAIR BY VOLUNTEER. HOME WITH MRS. RODRIGUEZ. Melody ROSARIO R.N.
== END 2018-08-12 11:25 | disposition hospice, home (50) ==
LOC: D.OPS 05:30 → D.PAN 07:30 → D.OPS 11:25
PROVIDERS: Anesthesiology; ATTEND Urology
DX: N40.1 Benign prostatic hyperplasia with lower urinary tract symptoms (principal); N13.8 Other obstructive and reflux uropathy; R41.3 Other amnesia; Z88.0 Allergy status to penicillin; Z79.899 Other long term (current) drug therapy

== ENCOUNTER 2018-08-14 16:51 | Emergency (ER) | payer MEDICARE ==
[2018-08-14 17:05] VITALS: BMI 29.1
[2018-08-14 18:54] LABS: APPEARANCE CLEAR (CLEAR); BILIRUBIN NEGATIVE (NEGATIVE); COLOR YELLOW (YELLOW); GLUCOSE NEGATIVE (NEGATIVE); KETONE NEGATIVE (NEGATIVE); NITRITE NEGATIVE (NEGATIVE); PROTEIN TRACE mg/dL (NEGATIVE); SPECIFIC GRAVITY 1.015 (1.005-1.020); UROBILINOGEN NORMAL (NORMAL)
[2018-08-14 18:55] LABS: BACTERIA FEW /hpf (NONE SEEN); EPITHELIAL CELLS 0-5 /hpf (0-5); WHITE CELLS - URINE 0-5 /hpf (0-5)
[2018-08-14 19:17] VITALS: BP 142/83
[2018-08-15] MEDS ORDERED: MACROBID100 MG PO (08:51)
[2018-08-15] MEDS ORDERED: PHENAZOPYRIDIN200 MG PO (08:51)
[2018-08-15] MEDS ORDERED: KEFLEX500 MG PO (08:51)
== END 2018-08-14 19:17 | disposition home or self-care (01) ==
LOC: D.ER 16:51
PROVIDERS: Emergency Medicine
DX: R33.9 Retention of urine, unspecified (principal)

== ENCOUNTER 2018-08-15 08:02 | Emergency (ER) | payer MEDICARE ==
[~2018-08-15] VITALS: Ht 182.9 cm; Wt 96.4 kg
[2018-08-15 08:06] VITALS: Ht 182.9 cm; Wt 96.4 kg
[2018-08-15] MEDS ORDERED: KEFLEX500 MG PO (08:51)
[2018-08-15] MEDS ORDERED: MACROBID100 MG PO (08:51)
[2018-08-15] MEDS ORDERED: PHENAZOPYRIDIN200 MG PO (08:51)
[2018-08-15 09:25] LABS: BASOPHILS 0.1 % (0-2); EOSINOPHILS 2.1 % (0-7); HEMATOCRIT 42.8 % (42.0-54.0); HEMOGLOBIN 14.8 g/dL (13.5-17.5); IMMATURE GRANULOCYTES 0.2 % (0-5); LYMPHOCYTES 21.6 % (15-50); MCHC 34.6 g/dL (31.0-37.0); MCV 92.4 fL (80.0-100.0); MEAN PLATELET VOLUME 9.6 fL (7.4-10.4); MONOCYTES 9.4 % (2-11); NEUTROPHILS 66.6 % (40-80); PLATELET COUNT 146 10x3/uL (130-400); RBC 4.63 10x6/uL (4.20-6.10); RDW 13.7 % (11.5-14.5); WBC 9.5 10x3/uL (4.8-10.8)
[2018-08-15 09:39] LABS: ALBUMIN 3.9 g/dL (3.4-5.0); ANION GAP 12.7 mmol/L (8-16); BILIRUBIN - TOTAL 0.89 mg/dL (0.2-1.3); CALCIUM 9.3 mg/dL (8.5-10.1); CARBON DIOXIDE 26.6 mmol/L (21.0-32.0); CREATININE - SERUM 1.1 mg/dL (0.6-1.3); POTASSIUM - SERUM 4.3 mmol/L (3.5-5.1)
[2018-08-15 09:44] LABS: APPEARANCE HAZY (CLEAR); BACTERIA FEW /hpf (NONE SEEN); BILIRUBIN NEGATIVE (NEGATIVE); COLOR YELLOW (YELLOW); EPITHELIAL CELLS RARE /hpf (0-5); GLUCOSE NEGATIVE (NEGATIVE); KETONE NEGATIVE (NEGATIVE); NITRITE NEGATIVE (NEGATIVE); PROTEIN NEGATIVE (NEGATIVE); RED CELLS - URINE 25-50 /hpf (0-5); UROBILINOGEN NORMAL (NORMAL); WHITE CELLS - URINE RARE /hpf (0-5)
[2018-08-15 10:00] VITALS: BP 125/80
== END 2018-08-15 09:52 | disposition home or self-care (01) ==
LOC: D.ER 08:02
PROVIDERS: Family Medicine
DX: T83.098A Other mechanical complication of other urinary catheter, initial encounter (principal)

== ENCOUNTER 2018-11-04 07:40 | Day surgery (SDC) | payer MEDICARE ==
[2018-11-03 12:35] LABS: BASOPHILS 0.1 % (0-2); EOSINOPHILS 3.3 % (0-7); HEMATOCRIT 41.9 % (42.0-54.0); HEMOGLOBIN 14.8 g/dL (13.5-17.5); IMMATURE GRANULOCYTES 0.5 % (0-5); MCH 32.7 pg (26.0-34.0); MCHC 35.3 g/dL (31.0-37.0); MCV 92.5 fL (80.0-100.0); MEAN PLATELET VOLUME 9.2 fL (7.4-10.4); MONOCYTES 7.5 % (2-11); NEUTROPHILS 65.6 % (40-80); PLATELET COUNT 144 10x3/uL (130-400); RBC 4.53 10x6/uL (4.20-6.10); RDW 13.7 % (11.5-14.5); WBC 10.5 10x3/uL (4.8-10.8)
[2018-11-03 12:47] LABS: APTT 28.8 SECONDS (22.8-39.4); INR 1.12 (0.85-1.17); PROTIME 13.9 SECONDS (11.6-15.0)
[2018-11-03 13:05] LABS: ANION GAP 10.7 mmol/L (8-16); CALCIUM 8.8 mg/dL (8.5-10.1); CARBON DIOXIDE 28.2 mmol/L (21.0-32.0); CREATININE - SERUM 1.2 mg/dL (0.6-1.3); POTASSIUM - SERUM 4.9 mmol/L (3.5-5.1)
[~2018-11-04] VITALS: Ht 185.4 cm; Wt 97.5 kg
[~2018-11-04 07:40] MED LIST changes: +KEFLEX500 MG PO; +MACROBID100 MG PO; +PHENAZOPYRIDIN200 MG PO
[2018-11-04 09:40] VITALS: BP 123/70; Ht 185.4 cm; Wt 97.5 kg
--- NOTE | 2018-11-04 12:10 | OP ---
PATIENT NAME: CK RODRIGUEZ MEDICAL RECORD: [id number] :34 LOCATION:D.OPS ADMISSION DATE: SURGEON: RAY VALENZUELA MD DATE OF OPERATION: 11/04/2018 SURGEON: Ray Valenzuela MD ANESTHESIA: TIVA by Zana Monsivais CRNA. 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 PROCEDURE: Transurethral resection of the prostate. SPECIMENS: Prostate resection chips. FINDINGS: Nonobstructive lateral lobes. Bladder neck stenosis. Very tall bladder neck. Single ureteral orifices bilaterally with no bladder tumors. BLOOD LOSS: None. CLINICAL HISTORY: This is an 83-year-old male who had a UroLift times 4 placed in a box configuration for bladder neck obstruction. Although he seems to feel that he is voiding better now when we checked his postvoid residual it was still elevated at 387 mL. He comes today to have the bladder neck stenosis dealt with. HE IS ALLERGIC TO PENICILLIN. He was given Levaquin IV on-call to the OR. DESCRIPTION OF PROCEDURE: The patient was given IV sedation. He was then placed into lithotomy position. We then introduced the 17-Tunisian cystoscope. The bladder neck obstruction was noted. The bladder neck was extremely high and the scope had to be deflected anteriorly in order to enter into the bladder. We then switched to the monopolar resectoscope. A 24-Tunisian resection loop was used. I made incisions from the bladder neck to just proximal to the verumontanum and through the posterior channel at 6 o'clock. Eventually, we came down to the capsule of the prostate. There was no perforation anywhere. Any arterial bleeding that we found was immediately coagulated. At the end of the procedure, the resection chips were removed using the Adlyfe evacuator. Looking in the bladder, there were no signs of a prostate resection chips floating around. The single ureteral orifices were still seen on each side and these were untouched by our resection. At this point, the lens of the scope was removed with the sheath still in the bladder. Through the sheath, we inserted a sensor wire. The sheath was then removed, leaving the Sensor wire in place. Over the Sensor wire, we inserted a 24-Tunisian tonto apache tip 3-way Wu catheter. Once this was fully in the bladder, the balloon was inflated with 20 cc of sterile water. The wire was then removed entirely. The inflow port of the catheter was plugged using a catheter plug. The Wu catheter was then put to bag drainage. He will go home with a Wu catheter. I will see him in followup in 1 week's time for a voiding trial. TRANSINT:[id number] Voice Confirmation ID: [id number] DOCUMENT ID: [id number] OPERATIVE REPORT [id number] CK RODRIGUEZ, RAY Saavedra MD at 1210 CC: [id number] DICTATION DATE: 11/04/18 1129 VINYL HANGER: 11/04/18 1159 REG [facility] [address] [place] [id number]
== END 2018-11-04 12:15 | disposition home or self-care (01) ==
LOC: D.OPS 07:40 → D.PAN 10:00 → D.OPS 10:00 → D.PAN 11:10 → D.OPS 11:10
PROVIDERS: Anesthesiology; ATTEND Urology
DX: N32.0 Bladder-neck obstruction (principal); Z88.0 Allergy status to penicillin; Z01.812 Encounter for preprocedural laboratory examination

== ENCOUNTER → 2018-12-19 13:27 | Outpatient (CLI) | payer MEDICARE ==
[2018-11-04 09:40] VITALS: BMI 28.4
== END | disposition home or self-care (01) ==
LOC: D.CT 12-18 16:30
PROVIDERS: ATTEND Orthopaedic Surgery
DX: M25.512 Pain in left shoulder (principal); R07.9 Chest pain, unspecified

== ENCOUNTER → 2019-06-09 09:19 | Outpatient (CLI) | payer MEDICARE ==
[2018-11-04 09:40] VITALS: BMI 28.4
--- NOTE | 2019-06-10 13:11 | EC ---
PATIENT:CK RODRIGUEZ DATE OF SERVICE: 06/09/19 SEX: M MEDICAL RECORD: [id number] DATE OF : 33 LOCATION:[facility] AGE OF PATIENT: 83 ADMISSION DATE: 06/09/19 REFERRING PHYSICIAN: INTERPRETING PHYSICIAN: DEVAN RUEDA MD ECHOCARDIOGRAM REPORT ECHO CHARGES 4 ECHO COMPLETE Date: 06/09/19 CLINICAL DIAGNOSIS: HTN/MITRAL REGURG HX AFIB/ PACEMAKER ECHOCARDIOGRAPHIC MEASUREMENTS (adult normal given) AC root (d.<3.7cm) 4.2 cm LV Septum d (<1.2 cm> 1.7 cm Valve Excursion 1.9 cm LV Septum (systole) 1.9 cm Left Atria (s.<4.0cm> 4.8 cm LVPW d(<1.2cm) 1.8 cm RV (d.<2.3cm) 4.4 cm LVPW (sytole) 1.9 cm LV diastole(<5.6CM) 6.4 cm MV E-F(>70mm/sec) cm LV systole 4.9 cm LVOT Diameter 2.1 cm MV exc.(>10mm) 1.9 cm Est.ejection fraction (50-75%) % DOPPLER: LVIT cm/sec A 73.0 cm/sec E 53.0 cm/sec LA cm/sec RVSP 38 mmHg LVOT 64 cm/sec AOP1/2T m/s Asc. Ao 111 cm/sec RVOT 43 cm/sec RA cm/sec PA 75 cm/sec AV Gradient Peak 4.94 mmHg AV Mean 2.70 mmHg AV Area 2.2 cm MV Gradient Peak 3.90 mmHg MV Mean 1.31 mmHg MV Area cm COMMENTS: Kelp Cutter: 2 JANET NASH Traveling Sales Representative: 3 Dr. Macias TAPE# PACS Pericardial Effusion N DATE OF SERVICE: Adequate 2D, color flow imaging, spectral Doppler, and M-mode. LVH is present. LV internal dimensions normal. Wall motion is normal. EF is greater than or equal to 55%. Aortic valve is sclerotic. No evidence of stenosis by Doppler interrogation. Left atrium dilated at 4.8 cm. Mitral valve shows no prolapse. Mild MR. Right-sided chambers grossly normal. Mild TR. Incidental note is made of pacemaker lead in the RV apex. ECHOCARDIOGRAM REPORT [id number] CK RODRIGUEZ TRANSINT:[id number] Voice Confirmation ID: [id number] DOCUMENT ID: [id number] DEVAN RUEDA MD at 1311 CC: [id number] DICTATION DATE: 06/09/19 1307 FIBER OPTICS ENGINEER: 06/09/192114 DEP CLI 06/09/19 [facility] [address] [place] [id number]
== END | disposition home or self-care (01) ==
LOC: D.HCCECHO 09:00
PROVIDERS: ATTEND Internal Medicine Interventional Cardiology
DX: I10 Essential (primary) hypertension (principal)

== ENCOUNTER → 2020-07-25 12:45 | Outpatient (CLI) | payer MEDICARE ==
[2018-11-04 09:40] VITALS: BMI 28.4
--- NOTE | ~2020-07-25 | EC ---
PATIENT:CK RODRIGUEZ DATE OF SERVICE: 07/25/20 SEX: M MEDICAL RECORD: [id number] DATE OF : 34 LOCATION:[facility] AGE OF PATIENT: 84 ADMISSION DATE: 07/25/20 REFERRING PHYSICIAN: INTERPRETING PHYSICIAN: DEVAN RUEDA MD ECHOCARDIOGRAM REPORT ECHO CHARGES 4 ECHO COMPLETE Date: 07/25/20 CLINICAL DIAGNOSIS: ASSESS EF AND VALVES HX OF HTN/ATRIAL FIB/PACEMAKER ECHOCARDIOGRAPHIC MEASUREMENTS (adult normal given) AC root (d.<3.7cm) 3.7 cm LV Septum d (<1.2 cm> 1.1 cm Valve Excursion 2.3 cm LV Septum (systole) 1.7 cm Left Atria (s.<4.0cm> 5.7 cm LVPW d(<1.2cm) 1.4 cm RV (d.<2.3cm) 3.9 cm LVPW (sytole) 1.7 cm LV diastole(<5.6CM) 6.0 cm MV E-F(>70mm/sec) cm LV systole 3.8 cm LVOT Diameter 2.1 cm MV exc.(>10mm) 1.8 cm Est.ejection fraction (50-75%) % DOPPLER: LVIT cm/sec A cm/sec E 82.0 cm/sec LA cm/sec RVSP 46 mmHg LVOT 74 cm/sec AOP1/2T m/s Asc. Ao 128 cm/sec RVOT 68 cm/sec RA cm/sec PA 104 cm/sec AV Gradient Peak 6.58 mmHg AV Mean 3.82 mmHg AV Area 2.3 cm MV Gradient Peak 3.24 mmHg MV Mean 1.19 mmHg MV Area cm COMMENTS: Dinkey Driver: 2 JANET NASH Flatwork Finisher Hand: 3 Dr. Macias TAPE# PACS Pericardial Effusion N DATE OF SERVICE: Adequate 2D, color flow imaging, spectral Doppler, and M-Mode. FINDINGS: Borderline LVH. LV internal dimension is normal. Wall motion is normal. EF is greater than or equal to 55%. Aortic valve is tricuspid. Left atrium is dilated 5.7 cm. Mitral valve shows no prolapse. Mild MR. Right-sided chambers are grossly normal. Moderate TR. TRANSINT:[id number] Voice Confirmation ID: [id number] DOCUMENT ID: [id number] ECHOCARDIOGRAM REPORT [id number] CK RODRIGUEZ GREGORY A MD CC: [id number] DICTATION DATE: 07/26/20 145 PRINCIPAL NETWORK ENGINEER: 07/26/202034 DEP CLI 07/25/20 [id number] [place] [address]
== END | disposition home or self-care (01) ==
LOC: D.HCCECHO 12:45
PROVIDERS: ATTEND Internal Medicine Interventional Cardiology
DX: I10 Essential (primary) hypertension (principal)